=== PATIENT | male | born 1980 | race Hispanic/Latino ===

== ENCOUNTER 2020-08-12 08:51 | Emergency (ER) | payer OTHER ==
[2020-08-12] MEDS ORDERED: Lidocaine 1% 20 ML MDV ONE (09:07)
[2020-08-12] MEDS ORDERED: Bacitracin 1 PK ONE (09:45)
== END 2020-08-12 09:54 | disposition home or self-care (01) ==
LOC: MADERS 08:51
DX: S61.212A Laceration without foreign body of right middle finger without damage to nail, initial encounter (principal); W26.8XXA Contact with other sharp object(s), not elsewhere classified, initial encounter
CPT/HCPCS: 12002

== ENCOUNTER 2020-08-22 12:41 | Emergency (ER) | payer OTHER, SELFPAY | END 2020-08-22 13:15 | disposition home or self-care (01) | LOC: MADERS 12:41 | DX: S61.212D Laceration without foreign body of right middle finger without damage to nail, subsequent encounter (principal); W45.8XXD Other foreign body or object entering through skin, subsequent encounter | CPT/HCPCS: 99282 ==

== ENCOUNTER 2021-08-11 04:38 | Emergency (ER) | payer SELFPAY ==
[2021-08-11] MEDS ORDERED: Tetracaine 0.5% PF 4 ML BOT ONE (05:08)
[2021-08-11] MEDS ORDERED: Fluorescein Opthalmic Strip ONE (05:08)
[2021-08-11] MEDS ORDERED: Acetaminophen 500 MG TAB ONE (05:35)
[2021-08-11] MEDS ORDERED: Ibuprofen 800 MG TAB ONE (05:35)
[2021-08-11] MEDS ORDERED: Erythromycin Base 0.5% Ophth Oint 3.5 gm Tube ONE (05:35)
== END 2021-08-11 06:01 | disposition home or self-care (01) ==
LOC: MADERS 04:38
DX: T15.92XA Foreign body on external eye, part unspecified, left eye, initial encounter (principal)
CPT/HCPCS: 99283